=== PATIENT | male | born 1950 | race Hispanic/Latino ===

== ENCOUNTER → 2023-07-29 | Outpatient (CLI) | payer OTHER | END | disposition home or self-care (01) | LOC: RAH 14:18 | PROVIDERS: ATTEND Orthopaedic Surgery | DX: M17.12 Unilateral primary osteoarthritis, left knee (principal); M25.762 Osteophyte, left knee | CPT/HCPCS: 73700 ==

== ENCOUNTER → 2023-08-29 | Outpatient (CLI) | payer OTHER ==
[2023-08-29 22:37] VITALS: PULSE 84; RESP 24
[2023-08-29 23:00] VITALS: PULSE 74; RESP 18
[2023-08-29 23:30] VITALS: PULSE 80; RESP 20
[2023-08-30] VITALS (10 sets, daily range): PULSE 44–82; RESP 16–24
== END | disposition home or self-care (01) ==
LOC: SLP 20:15
PROVIDERS: ATTEND Internal Medicine
DX: G47.33 Obstructive sleep apnea (adult) (pediatric) (principal); R40.0 Somnolence
CPT/HCPCS: 95810

== ENCOUNTER → 2023-11-07 | Outpatient (CLI) | payer OTHER | END | disposition home or self-care (01) | LOC: RAH 13:51 | PROVIDERS: ATTEND Internal Medicine | DX: M17.12 Unilateral primary osteoarthritis, left knee (principal); M25.462 Effusion, left knee; M79.89 Other specified soft tissue disorders; L03.116 Cellulitis of left lower limb; R60.0 Localized edema | CPT/HCPCS: 73560; 76882; 93971 ==

== ENCOUNTER → 2024-03-19 | Outpatient (CLI) | payer OTHER | END | disposition home or self-care (01) | LOC: RAH 07:45 | PROVIDERS: ATTEND Internal Medicine | DX: N28.1 Cyst of kidney, acquired (principal); R22.2 Localized swelling, mass and lump, trunk | CPT/HCPCS: 76700 ==